=== PATIENT | male | born 1995 | race Caucasian/White ===

== ENCOUNTER 2018-01-12 17:05 | Emergency (ER) | payer BC ==
[~2018-01-12] VITALS: Ht 188 cm; Wt 97.5 kg
[2018-01-12] MEDS ORDERED: ADVIL200 MG NG (17:16)
[2018-01-12] MEDS ORDERED: ZITHROMAX250 MG PO (17:17)
[2018-01-12] MEDS ORDERED: GUAIFEN-CODEINE10 ML PO (17:17)
== END 2018-01-12 17:23 | disposition home or self-care (01) ==
LOC: ED 17:05
DX: J40 Bronchitis, not specified as acute or chronic (principal)
CPT/HCPCS: 99283